=== PATIENT | male | born 1950 | race Caucasian/White ===

== ENCOUNTER 2021-03-08 15:19 | Outpatient (CLI) | payer MEDICARE, OTHER, SELFPAY ==
--- NOTE | 2021-03-08 15:27 | XR_ITS ---
WS: [id number] KUB, AP view, 03/08/2021 Clinical Data: BACK PAIN, HEMATURIA Comparison: None. Findings: No abnormal intraabdominal masses are seen. There is no dilatated small bowel or evidence of obstruct ion. There are 2 small calcifications overlying the left kidney. The right kidney shows no calcifications but is partly obscured by colon gas and fecal material. There is a phlebolith on the right side of th e true pelvis. Osteoarthritic change of both acetabular lips is noted. XR/XR KUB [id number] Impression: Probable 2 small left renal calculi.
== END 2021-03-08 15:20 | disposition home or self-care (01) ==
PROVIDERS: PCP Nurse Practitioner Family; Visit Provider Nurse Practitioner Family
DX: M54.9 Dorsalgia, unspecified (principal); R31.9 Hematuria, unspecified
CPT/HCPCS: 74018

== ENCOUNTER 2021-05-20 20:00 | Emergency (ER) | payer MEDICARE, OTHER, SELFPAY ==
[2021-05-20 21:37] VITALS: BP 176/98; PULSE 77; RESP 18; TEMP 36.6; O2SAT 91; BMI 29.5
--- NOTE | 2021-05-20 21:50 | XRR_ITS ---
PROCEDURE INFORMATION: Exam: XR Chest Exam date and time: 05/20/2021 9:50 PM Age: 71 years old Clinical indication: Dyspnea; Additional info: Covid, hypoxia TECHNIQUE: Imaging protocol: XR of the chest. Views: 1 view. COMPARISON: CR XR KUB [id number] 03/08/2021 3:34 PM FINDINGS: Lungs: Minimal bilateral mid lung field opacities suggesting minimal atelectasis or pneumonia bilaterally. Pleural spaces: Unremarkable. No pleural effusion. No pneumothorax. Heart/Mediastinum: Unremarkable. No cardiomegaly. Bones/joints: Unremarkable. XR/XR chest 1V portable [id number] IMPRESSION: Minimal bilateral mid lung field opacities suggesting minimal atelectasis or pneumonia bilaterally.
--- NOTE | 2021-05-20 21:50 | ECG_ITS ---
[facility] Test Date: 2021-05-20 Pat Name: Griffin Rene Department: Room: Gender: Male Group Chief Operator: : 1950 Requested By: Mega Leyva Order Number: [id number] Reading MD: OSEAS DIAZ Measurements Intervals [place] Rate: 75 P: 21 RI: 142 QRS: -62 QRSD: 106 T: 26 QT: 389 QTc: 437 Interpretive Statements SINUS RHYTHM PATTERN CONSISTENT WITH PULMONARY DISEASE INCOMPLETE RIGHT BUNDLE BRANCH BLOCK [90+ ms QRS DURATION, TERMINAL R IN V1/V2, 40+ ms S IN I/aVL/V4/V5/V6] LEFT ANTERIOR FASCICULAR BLOCK [QRS AXIS <= -45, QR IN I, RS IN II] No previous ECG available for comparison Electronically Signed On 05-21-2021 23:34:42 CDT by OSEAS DIAZ [id number]
--- NOTE | 2021-05-20 21:50 | W.ED.COVID ---
HPI - COVID General: Chief Complaint: COVID symptoms Stated Complaint: Covid + Oxgen Level Low Time Seen by Provider: 05/20/21 21:50 Triage information: Has fever, cough or shortness of breath. Exposure to COVID + person last 14 days History of Present Illness: HPI Narrative: 71-year-old male comes in today with complaints of low oxygen. Patient states that he has had oxygen levels down to 87%. Patient appears well. Patient appears no acute distress. Patient denies any chest pain or other symptoms. Patient is alert and oriented. Patient has been ill since 12 May. COVID Results: No Data to Display Review of Systems General: Reports: 10 or more systems reviewed and unremarkable except in HPI and below Resp: Reports: other (Low oxygen) Physical Exam Const: COMMON NORMALS: no acute distress and patient oriented x3 GENERAL APPEARANCE: cooperative HENMT: COMMON NORMALS: normocephalic and Normal external nose present HEAD & SCALP: normal to inspection and normocephalic NOSE: Normal external nose present MOUTH: Normal oral and palatal mucosa present THROAT: posterior oropharynx normal Eye: GENERAL EYE: appearance normal, both eyes and all related structures Neck/C-Spine: COMMON NORMALS: full ROM Lymph: LYMPHATIC: no lymphadenopathy noted Chest: COMMONS NORMALS: normal inspection of the chest Resp: COMMON NORMALS: normal respiratory effort EFFORT & INSPECTION: Yes able to speak in complete sentences AUSCULTATION: crackles Laterality: left Cardio: COMMON NORMALS: regular rate and regular rhythm RATE: regular rate RHYTHM: regular rhythm GI: COMMON NORMALS: non-tender Back/Pelvis: COMMON NORMALS: thoracic and lumbar spine normal to inspection Extremity: COMMON NORMALS: normal to inspection Neuro: COMMON NORMALS: patient oriented x3 and moves all extremities Psych: COMMON NORMALS: mental status grossly normal and cooperative Skin: COMMON NORMALS: no rashes or lesions noted GENERAL SKIN EXAM: no rashes or lesions noted Course Vital Signs: Vital signs: Vital Signs Temperature 97.9 F 05/20/21 21:37 Pulse Rate 76 05/21/21 00:07 Respiratory Rate 18 05/21/21 00:07 Blood Pressure 176/98 05/20/21 21:59 Pulse Oximetry 92 05/21/21 00:07 MDM - COVID Medical Records: Medical records narrative: Patient came in today for complaints of low oxygen level. On arrival to the ER patient's O2 sats stayed between 93 and 94% on room air. Lungs noted some crackles in the left airfields. Skin was warm and dry. Patient was afebrile. Differential diagnosis includes COVID-19, COVID-19 pneumonia, respiratory failure. Laboratory values noted a CRP of 55, D-dimer is 0.84, troponin was 18. Did not feel the D-dimer warranted CTA of the chest due to patient's age and relative normalcy for his age. CRP was elevated I feel was probably due to his infection of COVID-19. Sodium was 132 and potassium was 3.0. Patient was treated with 500 mL of fluid by IV, 40 mEq of potassium, dexamethasone, with recommendations for follow-up with primary care in 3 days for recheck. Patient wished to have the monoclonal antibody infusion. I agreed with patient and ordered the medication. We also set patient up for home oxygen to use as needed for shortness of breath or low oxygen levels. Patient reported understanding of care plan and need for follow-up or return to the ER. Lab Data: Labs: Lab Results 05/20/21 05/20/21 05/20/21 Range/Units 22:44 22:44 22:44 WBC 4.6 (4.0-10.0) 10^3/ uL RBC 5.22 (4.1-5.3) 10^6/u L Hgb 16.1 (11.7-16.6) g/dL Hct 47.2 (42.0-52.0) % MCV 90.4 (80-94) fL MCH 30.8 (28.0-34.0) pg MCHC 34.1 (30.0-36.0) g/dL RDW 13.3 (12.1-15.1) % Plt Count 77 L (130-400) 10^3/c mm MPV 12.0 H (7.4-10.4) fL Neut % (Auto) 70.5 % Lymph % (Auto) 19.9 % [place] % (Auto) 9.0 % Eos % (Auto) 0.0 % Baso % (Auto) 0.2 % Neut # (Auto) 3.23 (1.8-7.7) 10^3/u L Lymph # (Auto) 0.9 (0.8-4.8) 10^3/u L [place] # (Auto) 0.4 (0.2-0.9) 10^3/u L Eos # (Auto) 0.0 (0.0-0.8) 10^3/u L Baso # (Auto) 0.0 (0.0-0.1) 10^3/u L Nucleated RBC % (a uto) 0 % Nucleated RBCs # 0.0 /100WBC D-Dimer 0.84 H (0-0.59) ug/mIFE U Sodium 132 L (136-145) mmol/L Potassium 3.0 L (3.5-5.1) mmol/L Chloride 92 L (98-107) mmol/L Carbon Dioxide 28 (22-29) mmol/L Anion Gap 15.0 (5-19) BUN 22 (8-23) mg/dL Creatinine 1.1 (0.7-1.2) mg/dL GFR Calculation Not Reportable Glucose 106 (65-115) mg/dL Calculated Osmolal ity 278 L (285-295) mOsm/k g Calcium 8.1 L (8.5-10.5) mg/dL Total Bilirubin 0.7 (0.15-1.2) mg/dL AST 46 H (0-40) U/L ALT 31 (0-41) U/L Alkaline Phosphata se 61 (40-130) IU/L Creatine Kinase 137 (39-308) U/L Troponin T Gen 5 n g/L (0-15) ng/L C-Reactive Protein 55.8 H (0.0-4.9) mg/L Total Protein 5.9 L (6.6-8.7) g/dL Albumin 3.7 (3.5-5.2) g/dL Globulin 2.2 (1.3-4.6) g/dL 05/20/21 Range/Units 22:44 WBC (4.0-10.0) 10^3/ uL RBC (4.1-5.3) 10^6/u L Hgb (11.7-16.6) g/dL Hct (42.0-52.0) % MCV (80-94) fL MCH (28.0-34.0) pg MCHC (30.0-36.0) g/dL RDW (12.1-15.1) % Plt Count (130-400) 10^3/c mm MPV (7.4-10.4) fL Neut % (Auto) % Lymph % (Auto) % [place] % (Auto) % Eos % (Auto) % Baso % (Auto) % Neut # (Auto) (1.8-7.7) 10^3/u L Lymph # (Auto) (0.8-4.8) 10^3/u L [place] # (Auto) (0.2-0.9) 10^3/u L Eos # (Auto) (0.0-0.8) 10^3/u L Baso # (Auto) (0.0-0.1) 10^3/u L Nucleated RBC % (a uto) % Nucleated RBCs # /100WBC D-Dimer (0-0.59) ug/mIFE U Sodium (136-145) mmol/L Potassium (3.5-5.1) mmol/L Chloride (98-107) mmol/L Carbon Dioxide (22-29) mmol/L Anion Gap (5-19) BUN (8-23) mg/dL Creatinine (0.7-1.2) mg/dL GFR Calculation Glucose (65-115) mg/dL Calculated Osmolal ity (285-295) mOsm/k g Calcium (8.5-10.5) mg/dL Total Bilirubin (0.15-1.2) mg/dL AST (0-40) U/L ALT (0-41) U/L Alkaline Phosphata se (40-130) IU/L Creatine Kinase (39-308) U/L Troponin T Gen 5 n g/L 18 H (0-15) ng/L C-Reactive Protein (0.0-4.9) mg/L Total Protein (6.6-8.7) g/dL Albumin (3.5-5.2) g/dL Globulin (1.3-4.6) g/dL EKG Data: EKG 1: Attestation: I personally reviewed and interpreted this EKG as follows: (EKG shows a sinus rhythm with a regular rate at [address] elevation or ectopy is noted. Computer reads a left anterior fascicular block, incomplete right bundle branch block, and a pattern consistent with pulmonary disease. No previous EKG was available for me for comparison.) COVID Results: No Data to Display Discharge Plan Discharge Patient Disposition: Home Clinical Impression: Pneumonia due to 2019-nCoV Condition: Stable Prescriptions: New albuterol sulfate 90 mcg/actuation HFA aerosol inhaler 2 inh inhalation Q6H PRN (Reason: shortness of breath or wheezing) Qty: 8.5 RF: 0 dexamethasone 6 mg tablet 6 mg PO BID Qty: 10 RF: 0 Discharge Orders: Discharge ED (Routine); Ordered 05/21/21 Ordered By: Mega Flanagan Other Ambulatory Orders: DME: Oxygen (Order) Location: None Selected Ordered By: Mega Flanagan Referrals: Oni Rowe NP [Primary Care Provider] - Discharge Diet: Usual diet Discharge Activity: Increase activity as tolerated Patient Instructions: Viral Pneumonia (ED), Opioid Safety Activity Restrictions/Additional Instructions: Home and rest. Activity as tolerated. Drink plenty of fluids. Use medications as directed. Follow-up with primary care as needed. Return to the ER for worsening symptoms or new concerns. Coding Level of Care Code ED Strategic Accounts Manager for Brie Fwd Exam Comprehensive
[2021-05-20 21:53] VITALS: O2SAT 94
--- NOTE | 2021-05-20 21:54 | PC.NURSE ---
bill fourdrinier machine operator in room at this time
[2021-05-20 21:59] VITALS: BP 176/98; PULSE 84; RESP 21; O2SAT 91
[2021-05-20 22:50] LABS: Basophils % 0.2 %; Hematocrit 47.2 % (42.0-52.0); Hemoglobin 16.1 g/dL (11.7-16.6); Lymphocytes # 0.9 10^3/uL (0.8-4.8); Lymphocytes % 19.9 %; Mean Corpuscular HGB Conc 34.1 g/dL (30.0-36.0); Mean Corpuscular Hemoglobin 30.8 pg (28.0-34.0); Mean Corpuscular Volume 90.4 fL (80-94); Monocytes # 0.4 10^3/uL (0.2-0.9); Neutrophils # 3.23 10^3/uL (1.8-7.7); Neutrophils % 70.5 %; Nucleated Red Blood Cells % 0 %; Platelet Count 77 10^3/cmm (130-400); Red Blood Count 5.22 10^6/uL (4.1-5.3); Red Cell Distribution Width 13.3 % (12.1-15.1); White Blood Count 4.6 10^3/uL (4.0-10.0)
[2021-05-20 23:12] LABS: Troponin T (5th) Once 18 ng/L (0-15)
[2021-05-20 23:14] LABS: Alanine Aminotransferase 31 U/L (0-41); Albumin Level 3.7 g/dL (3.5-5.2); Alkaline Phosphatase 61 IU/L (40-130); Aspartate Amino Transferase 46 U/L (0-40); Blood Urea Nitrogen 22 mg/dL (8-23); C Reactive Protein 55.8 mg/L (0.0-4.9); Calcium 8.1 mg/dL (8.5-10.5); Carbon Dioxide 28 mmol/L (22-29); Chloride 92 mmol/L (98-107); Creatine Phosphokinase 137 U/L (39-308); Globulin 2.2 g/dL (1.3-4.6); Glucose 106 mg/dL (65-115); Osmolality Calculated 278 mOsm/kg (285-295); Sodium 132 mmol/L (136-145); Total Bilirubin 0.7 mg/dL (0.15-1.2); Total Protein 5.9 g/dL (6.6-8.7)
[2021-05-20 23:16] VITALS: PULSE 82; RESP 23; O2SAT 93
--- NOTE | 2021-05-20 23:20 | PC.NURSE ---
PT O2 SAT AT THIS TIME WAS 88. INSTRUCTED PT TO COUGH AND SAT HIM UPRIGHT ON THE SIDE OF THE BED. O2 WENT TO 93 AT THIS TIME.
[2021-05-20 23:24] LABS: D Dimer 0.84 ug/mIFEU (0-0.59)
[2021-05-21] MEDS: albuterol 8 gm MDI 2 PUFF INHALATION (00:06)
[2021-05-21 00:07] VITALS: PULSE 76; RESP 18; O2SAT 92
[2021-05-21 01:00] VITALS: BP 180/85; PULSE 85; RESP 12; O2SAT 95
[2021-05-21] MEDS: sodium chloride 0.9% 500 ML 999 ML IV (01:27)
[2021-05-21] MEDS: potassium chloride ER 20 mEq Tablet 40 MEQ PO (01:30)
[2021-05-21] MEDS: dexamethasone 10 mg/mL INJ 6 MG IVP (01:31)
[2021-05-21 01:54] VITALS: BP 191/87; PULSE 82; RESP 24; O2SAT 91
== END 2021-05-21 01:57 | disposition home or self-care (01) ==
PROVIDERS: Emergency Provider Nurse Practitioner Family; PCP Nurse Practitioner Family
DX: U07.1 COVID-19 (principal); J12.82 Pneumonia due to coronavirus disease 2019
CPT/HCPCS: 71045; 80053; 82550; 83605; 83880; 84484; 85025; 85378; 86140; 93005; 94640; 96365; 96375; 99283; 99284; J1100; J3535; J7040

== ENCOUNTER 2021-05-21 21:16 | Emergency (ER) | payer MEDICARE, OTHER, SELFPAY ==
[2021-05-21 21:41] VITALS: BP 137/74; PULSE 69; RESP 18; TEMP 37.2; O2SAT 87; BMI 29.5
[2021-05-21 21:49] VITALS: O2SAT 87; O2SAT 93
--- NOTE | 2021-05-21 21:53 | XRR_ITS ---
PROCEDURE INFORMATION: Exam: XR Chest Exam date and time: 05/21/2021 9:53 PM Age: 71 years old Clinical indication: Shortness of breath; Additional info: SOB TECHNIQUE: Imaging protocol: XR of the chest. Views: 1 view. COMPARISON: CR (CHEST, ) 05/20/2021 10:04 PM FINDINGS: Lungs: Unchanged poorly defined opacities in both mid lung zones are most likely scarring or atelectasis. Patchy densities in the right midlung zone may also be pleural plaque from prior asbestos exposure. The lungs are otherwise clear. Pleural spaces: See Lungs finding. Heart/Mediastinum: The aorta is tortuous. The cardiac silhouette is unremarkable. Bones/joints: There are degenerative changes throughout the spine. XR/XR chest 1V portable [id number] IMPRESSION: Probable atelectasis or scarring in the mid lungs and possible pleural plaque if the patient has had prior asbestos exposure.
--- NOTE | 2021-05-21 22:07 | W.ED.COVID ---
HPI - COVID General: Chief Complaint: COVID symptoms Stated Complaint: covid+, low 02 Time Seen by Provider: 05/21/21 21:51 Source: patient Mode of arrival: ambulatory Limitations: no limitations Triage information: Has fever, cough or shortness of breath. Exposure to COVID + person last 14 days History of Present Illness: HPI Narrative: 71-year-old male who tested positive for Covid earlier this week. Patient had a monoclonal antibody infusion this morning was also placed on home oxygen. He states he has home O2 is on 2 L. He states that today has had some slight hypoxia and was getting concerned. He states he has been feeling fine though. Is a very mild cough. Denies any shortness of breath currently. He is able to speak in full sentences here. Denies any vomiting or diarrhea. COVID 19 common symptoms: positive non-productive cough and dyspnea; negative fever(s), chills, body aches, headache(s), throat pain, nausea, vomiting or diarrhea COVID 19 other sytmptoms: negative chest pain COVID Results: No Data to Display Review of Systems Const: Denies: fever(s), chills, body aches or change in appetite Eyes: Denies: blurry vision or eye discomfort ENMT: Denies: throat pain or dental pain Card: Denies: chest pain Resp: Reports: dyspnea and non-productive cough GI: Denies: abdominal pain, nausea, vomiting or diarrhea : Denies: dysuria Musc: Denies: neck pain or back pain Skin/Breast: Denies: rash Neuro: Denies: headache(s) Psych: Denies: depression Hubert/Lymph: Denies: easy bruising All/Imm: Denies: urticaria Physical Exam Const: COMMON NORMALS: no acute distress, patient oriented x3 and healthy appearing HENMT: COMMON NORMALS: normocephalic and atraumatic HEAD & SCALP: normocephalic and atraumatic Eye: COMMON NORMALS: Equal, round and reactive pupils present and EOMs intact bilaterally PUPIL: Yes Equal, round and reactive pupils present Neck/C-Spine: COMMON NORMALS: full ROM and supple Chest: COMMONS NORMALS: normal inspection of the chest and normal palpation of entire chest wall Resp: COMMON NORMALS: normal respiratory effort, No retractions, No use of accessory muscles and clear to auscultation bilaterally AUSCULTATION: clear to auscultation bilaterally Cardio: COMMON NORMALS: regular rate, regular rhythm and No murmurs present (Cardio) RATE: regular rate RHYTHM: regular rhythm GI: COMMON NORMALS: Normal to inspection, nondistended, normoactive bowel sounds present, Soft to palpation, non-tender and no masses PALPATION: Yes Soft to palpation Extremity: COMMON NORMALS: normal to inspection and full ROM Neuro: COMMON NORMALS: patient oriented x3, moves all extremities and no focal motor deficits Psych: COMMON NORMALS: mental status grossly normal, Normal thought process present and cooperative THOUGHT PROCESS: Normal thought process present Skin: COMMON NORMALS: no rashes or lesions noted and no wounds GENERAL SKIN EXAM: no rashes or lesions noted Course Vital Signs: Vital signs: Vital Signs Temperature 98.5 F 05/21/21 23:44 Pulse Rate 61 05/21/21 23:44 Respiratory Rate 20 H 05/21/21 23:44 Blood Pressure 137/74 05/21/21 21:41 Pulse Oximetry 92 05/21/21 23:44 MDM - COVID MDM Narrative: Medical decision making narrative: Patient presents here with Covid pneumonia. He is well-appearing here and doing well on his 3 L. He has had no hypoxia here and his blood work here is normal. He is stable for discharge is to continue his meds and return to ER if worsening. He understands agrees to plan. Lab Data: Labs: Lab Results 05/21/21 05/21/21 05/21/21 Range/Units 22:45 22:45 23:02 WBC 9.3 (4.0-10.0) 10^3/ uL RBC 5.01 (4.1-5.3) 10^6/u L Hgb 15.6 (11.7-16.6) g/dL Hct 45.3 (42.0-52.0) % MCV 90.4 (80-94) fL MCH 31.1 (28.0-34.0) pg MCHC 34.4 (30.0-36.0) g/dL RDW 13.5 (12.1-15.1) % Plt Count 89 L (130-400) 10^3/c mm MPV 11.6 H (7.4-10.4) fL Neut % (Auto) 87.6 % Lymph % (Auto) 6.8 % [place] % (Auto) 5.1 % Eos % (Auto) 0.0 % Baso % (Auto) 0.2 % Neut # (Auto) 8.13 H (1.8-7.7) 10^3/u L Lymph # (Auto) 0.6 L (0.8-4.8) 10^3/u L [place] # (Auto) 0.5 (0.2-0.9) 10^3/u L Eos # (Auto) 0.0 (0.0-0.8) 10^3/u L Baso # (Auto) 0.0 (0.0-0.1) 10^3/u L Nucleated RBC % (a uto) 0 % Nucleated RBCs # 0.0 /100WBC Sodium 133 L (136-145) mmol/L Potassium 3.4 L (3.5-5.1) mmol/L Chloride 94 L (98-107) mmol/L Carbon Dioxide 29 (22-29) mmol/L Anion Gap 13.4 (5-19) BUN 26 H (8-23) mg/dL Creatinine 1.4 H (0.7-1.2) mg/dL GFR Calculation Not Reportable Glucose 195 H (65-115) mg/dL Calculated Osmolal ity 286 (285-295) mOsm/k g Lactic Acid 1.9 (0.5-2.2) mmol/L Calcium 8.1 L (8.5-10.5) mg/dL Total Bilirubin 0.7 (0.15-1.2) mg/dL AST 58 H (0-40) U/L ALT 38 (0-41) U/L Alkaline Phosphata se 56 (40-130) IU/L C-Reactive Protein 84.3 H (0.0-4.9) mg/L NT-Pro-B Natriuret Pep 1958 H (0-125) pg/mL Total Protein 5.7 L (6.6-8.7) g/dL Albumin 3.6 (3.5-5.2) g/dL Globulin 2.1 (1.3-4.6) g/dL Imaging Data: CXR: Attestation: I personally reviewed and interpreted this imaging study as follows: Radiologist's impression: [address] [address] XRay Report Signed Patient: Griffin Rene Unit #: [id number] : 1950 Age/Sex: 71 / M ADM Date: 05/21/21 Loc: ER Room/Bed: Attending Dr: Ordering Provider/Ordering MD: Iveth Jimenez MD Date of Service: 05/21/21 Procedure(s): XR chest 1V portable [id number] Accession Number(s): [id number] Report Number: [id number] PROCEDURE INFORMATION: Exam: XR Chest Exam date and time: 05/21/2021 9:53 PM Age: 71 years old Clinical indication: Shortness of breath; Additional info: SOB TECHNIQUE: Imaging protocol: XR of the chest. Views: 1 view. COMPARISON: CR (CHEST, ) 05/20/2021 10:04 PM FINDINGS: Lungs: Unchanged poorly defined opacities in both mid lung zones are most likely scarring or atelectasis. Patchy densities in the right midlung zone may also be pleural plaque from prior asbestos exposure. The lungs are otherwise clear. Pleural spaces: See Lungs finding. Heart/Mediastinum: The aorta is tortuous. The cardiac silhouette is unremarkable. Bones/joints: There are degenerative changes throughout the spine. XR/XR chest 1V portable [id number] IMPRESSION: Probable atelectasis or scarring in the mid lungs and possible pleural plaque if the patient has had prior asbestos exposure. Dictated By: Lauro Cortez MD Signed By: Lauro Cortez MD Signed Date/Time: 05/21/212316 DD/ 14 COVID Results: No Data to Display Discharge Plan Discharge Patient Disposition: Home Clinical Impression: Pneumonia due to 2019-nCoV Condition: Stable Prescriptions: No Action albuterol sulfate 90 mcg/actuation HFA aerosol inhaler 2 inh inhalation Q6H PRN (Reason: shortness of breath or wheezing) Qty: 8.5 RF: 0 dexamethasone 6 mg tablet 6 mg PO BID Qty: 10 RF: 0 Discharge Orders: Discharge ED (Routine); Ordered 05/21/21 Ordered By: Iveth Jimenez Referrals: Oni Rowe NP [Primary Care Provider] - 1-3 days Discharge Diet: Advance as tolerated Discharge Activity: Resume usual activity Patient Instructions: Viral Syndrome (ED), Opioid Safety Coding Level of Care Code ED Division Superintendent for Brie Fwd Exam Comprehensive
[2021-05-21 22:53] LABS: Basophils % 0.2 %; Hematocrit 45.3 % (42.0-52.0); Hemoglobin 15.6 g/dL (11.7-16.6); Lymphocytes # 0.6 10^3/uL (0.8-4.8); Lymphocytes % 6.8 %; Mean Corpuscular HGB Conc 34.4 g/dL (30.0-36.0); Mean Corpuscular Hemoglobin 31.1 pg (28.0-34.0); Mean Corpuscular Volume 90.4 fL (80-94); Mean Platelet Volume 11.6 fL (7.4-10.4); Monocytes # 0.5 10^3/uL (0.2-0.9); Monocytes % 5.1 %; Neutrophils # 8.13 10^3/uL (1.8-7.7); Neutrophils % 87.6 %; Nucleated Red Blood Cells % 0 %; Platelet Count 89 10^3/cmm (130-400); Red Blood Count 5.01 10^6/uL (4.1-5.3); Red Cell Distribution Width 13.5 % (12.1-15.1); White Blood Count 9.3 10^3/uL (4.0-10.0)
[2021-05-21 23:21] LABS: Alanine Aminotransferase 38 U/L (0-41); Albumin Level 3.6 g/dL (3.5-5.2); Alkaline Phosphatase 56 IU/L (40-130); Anion Gap 13.4 (5-19); Aspartate Amino Transferase 58 U/L (0-40); Blood Urea Nitrogen 26 mg/dL (8-23); C Reactive Protein 84.3 mg/L (0.0-4.9); Calcium 8.1 mg/dL (8.5-10.5); Carbon Dioxide 29 mmol/L (22-29); Chloride 94 mmol/L (98-107); Globulin 2.1 g/dL (1.3-4.6); Glucose 195 mg/dL (65-115); NT Pro B Type Natriuretic Pept 1958 pg/mL (0-125); Osmolality Calculated 286 mOsm/kg (285-295); Potassium 3.4 mmol/L (3.5-5.1); Sodium 133 mmol/L (136-145); Total Bilirubin 0.7 mg/dL (0.15-1.2); Total Protein 5.7 g/dL (6.6-8.7)
[2021-05-21 23:27] LABS: Creatinine Clr Calc Pharmacy 53.0961
[2021-05-21 23:28] LABS: Lactic Sepsis W/Reflex 1.9 mmol/L (0.5-2.2)
[2021-05-21 23:44] VITALS: PULSE 61; RESP 20; TEMP 36.9; O2SAT 92
[2021-05-22 00:27] VITALS: BP 123/77; PULSE 58; RESP 20; O2SAT 92
== END 2021-05-22 00:28 | disposition home or self-care (01) ==
PROVIDERS: Emergency Provider Emergency Medicine; PCP Nurse Practitioner Family
DX: U07.1 COVID-19 (principal); J12.82 Pneumonia due to coronavirus disease 2019
CPT/HCPCS: 71045; 80053; 83605; 83880; 85025; 86140; 99283

== ENCOUNTER 2021-06-13 09:00 | Outpatient (CLI) | payer MEDICARE, OTHER, SELFPAY ==
--- NOTE | 2021-06-13 09:05 | XR_ITS ---
WS: [id number] CHEST 2 VIEWS HISTORY: COVID PNEUMONIA COMPARISON: 2020 Lungs: Progression of bilateral areas of opacifications. Linear opacifications throughout the mid and lower LEFT thorax in the mid and upper RIGHT thorax. Cardiac size: Normal. Mediastinum/Aorta: Mild atherosclerosis aorta. Bones: Mild thoracic spondylitic change. XR/XR chest 2V* [id number] IMPRESSION: Increase in the bilateral opacifications, greatest throughout the LEFT lung. Co mbination of pneumonitis and atelectasis.
== END 2021-06-13 09:01 | disposition home or self-care (01) ==
PROVIDERS: PCP Nurse Practitioner Family; Visit Provider Nurse Practitioner Family
DX: U07.1 COVID-19 (principal); J12.82 Pneumonia due to coronavirus disease 2019
CPT/HCPCS: 71046